=== PATIENT | female | born 1960 | race Caucasian/White ===

== ENCOUNTER → 2020-04-11 14:29 | Outpatient (BNVA) | payer SELFPAY | PROVIDERS: PCP Physician Assistant; Visit Provider Physician Assistant | DX: Z76.89 Persons encountering health services in other specified circumstances (principal) ==

== ENCOUNTER 2020-05-09 14:12 | Outpatient (REF) | payer BC, SELFPAY ==
--- NOTE | 2020-05-09 14:16 | XR_ITS ---
EXAMINATION: XR PELVIS AND LEFT HIP CLINICAL INFORMATION: Hip pain. COMPARISON: None. TECHNIQUE: AP pelvis 2 views. Left hip one view AP. 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 No prosthetic loosening seen. Visualized SI joints and the pelvis and a crosstable lateral view left hip appear unremarkable. XR/XR pelvis 1-2V IMPRESSION: Total bilateral hip prostheses in satisfactory alignment. Unremarkable crosstable lateral view left hip.
--- NOTE | 2020-05-09 14:16 | XR_ITS ---
EXAMINATION: XR PELVIS AND LEFT HIP CLINICAL INFORMATION: Hip pain. COMPARISON: None. TECHNIQUE: AP pelvis 2 views. Left hip one view AP. 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 No prosthetic loosening seen. Visualized SI joints and the pelvis and a crosstable lateral view left hip appear unremarkable. XR/XR hip LT 1V IMPRESSION: Total bilateral hip prostheses in satisfactory alignment. Unremarkable crosstable lateral view left hip.
== END 2020-05-09 14:13 | disposition home or self-care (01) ==
LOC: HO.HOSX 14:12
PROVIDERS: PCP Physician Assistant; Referring Provider Physician Assistant; Visit Provider Orthopaedic Surgery
DX: Z96.642 Presence of left artificial hip joint (principal)
CPT/HCPCS: 72170; 73501

== ENCOUNTER → 2020-06-20 12:41 | Outpatient (BNVA) | payer OTHER, SELFPAY | PROVIDERS: PCP Physician Assistant; Referring Provider Physician Assistant; Visit Provider Orthopaedic Surgery | DX: Z76.89 Persons encountering health services in other specified circumstances (principal) ==